=== PATIENT | male | born 1995 | race Caucasian/White ===

== ENCOUNTER 2016-07-10 17:33 | Emergency (ER) | payer MEDICAID ==
[~2016-07-10 17:33] MED LIST: ADVAIR 25028 BLISTER INH; ALBUTEROL S5 MG/1 ML IH; ALBUTEROL SULF8.5 G2 INH; ALBUTEROL2.5 MG/0.1 IH; ANTIVERT25 M1 PO; ARIPIPRAZOLE2 MG PO; ASTELIN137 MCG NS; AZITHROMYCIN250 M1 PO; CETIRIZINE HCL10 M1 PO; CLARITIN; CLONIDINE HCL0.2 MG PO; COMPAZINE10 MG PO; CYCLOBENZAPRINE10 MG PO; DICYCLOMINE HCL20 M1 PO; DIVALPROEX SOD500 M4 PO; FLONASE ALLERG9.9 ML; FLUOXETINE; FLUOXETINE HCL20 M2 PO; HYDRALAZINE PO; HYDROXYZINE; HYDROXYZINE HCL25 M1 PO; HYDROXYZINE HCL50 M1 PO; KETOROLAC TROME10 MG PO; LAMICTAL25 M2 PO; LAMOTRIGINE PO; MECLIZINE HCL25 M3 PO; MOBIC7.5 M2 PO; NAPROSYN500 M1 PO; NORTRIPTYLINE; PANTOPRAZOLE SO40 M3 PO; PREDNISONE20 M1 PO; PROVENTIL HFA6.7 G1; PROVENTIL HFA6.7 G1 IH; RANITIDINE HCL150 M2 PO; RANITIDINE PO; SINGULAIR10 MG PO; SUMATRIPTAN SUC25 M1 PO; SYMBICORT 160-1 PUFF INH; SYMBICORT 80-46.9 GM IH; TIZANIDINE HCL4 M3 PO; TRAMADOL HCL50 MG PO; TRAZODONE; TRAZODONE HCL50 M1 PO; TRAZODONE PO; VENTOLIN HFA18 G2 IH; VENTOLIN HFA18 G2 INH; ZITHROMAX250 M1 PO; ZITHROMAX500 M2 PO; ZOFRAN ODT4 MG PO; ZOFRAN4 M2 PO; ZOLOFT50 M1 PO; [UNRECOGNIZED DRUG - REMARK] OP
[2016-07-10] MEDS ORDERED: MAXALT MLT10 MG PO (17:39)
[2016-07-10] MEDS ORDERED: ULTRAM50 M1 PO (17:51)
[2016-11-25] MEDS ORDERED: CLARITIN10 M6 PO (00:50)
[2016-11-25] MEDS ORDERED: ALLERGY RELIEF10 M7 PO (00:51)
[2016-11-25] MEDS ORDERED: TRAZODONE HCL50 M1 PO (00:57)
== END 2016-07-10 17:45 ==
LOC: EDMED 17:33
DX: S00.33XA Contusion of nose, initial encounter (principal); W18.09XA Striking against other object with subsequent fall, initial encounter; E11.9 Type 2 diabetes mellitus without complications; J45.909 Unspecified asthma, uncomplicated; K21.9 Gastro-esophageal reflux disease without esophagitis; Z88.0 Allergy status to penicillin; Z79.51 Long term (current) use of inhaled steroids; Z79.899 Other long term (current) drug therapy